=== PATIENT | female | born 1975 | race Hispanic/Latino ===

== ENCOUNTER 2018-11-11 04:07 | Emergency (ER) | payer OTHER ==
[2018-11-11] MEDS ORDERED: ACETAMINOPHEN EXTRA STRENGTH 500 MG TABLET ONE (05:13)
[2018-11-11] MEDS ORDERED: IBUPROFEN 600 MG TABLET ONE (05:13)
[2018-11-11 05:31] LABS: RAPID GROUP A STREP NEGATIVE (NEGATIVE)
== END 2018-11-11 06:13 ==
LOC: EDH 04:07
DX: B34.9 Viral infection, unspecified (principal); Z98.890 Other specified postprocedural states
CPT/HCPCS: 87804; 87880